=== PATIENT | female | born 1990 | race Caucasian/White ===

== ENCOUNTER 2021-06-24 14:31 | Inpatient (IN) | payer OTHER ==
[~2021-06-24] VITALS: Ht 162.6 cm; Wt 63.6 kg
[2021-06-24] MEDS ORDERED: FENTANYL PF 100 MCG/2ML ONE (15:45)
[2021-06-24 16:00] VITALS: BP 127/76
[2021-06-24] MEDS ORDERED: ONDANSETRON 2MG/ML, 2ML IVPush PRN (16:00)
[2021-06-24] MEDS ORDERED: D5%-LACTATED RINGERS 1,000 ML IV SCH (16:00)
[2021-06-24] MEDS ORDERED: FENTANYL PF 100 MCG/2ML IVPush PRN (16:00)
[2021-06-24] MEDS ORDERED: OXYTOCIN 30U/ 0.9% NaCL 500ML 500 ML IV ONE (16:00)
[2021-06-24] MEDS ORDERED: FENTANYL PF 100 MCG/2ML IV PRN (16:00)
[2021-06-24] MEDS ORDERED: TERBUTALINE 1 MG/ML, 1ML IVPush PRN (16:00)
[2021-06-24] MEDS ORDERED: CALCIUM CARBONATE 500 MG TAB.CHEW PO PRN ×2 (16:00→22:00)
[2021-06-24] MEDS ORDERED: TERBUTALINE 1 MG/ML, 1ML SQ PRN (16:00)
[2021-06-24] MEDS: LACTATED RINGERS 1,000 ML IV SCH ×3 (16:00→19:15)
[2021-06-24] MEDS ORDERED: NEWBORN KIT ONE (16:07)
[2021-06-24] MEDS ORDERED: OXYTOCIN 30U/ 0.9% NaCL 500ML 500 ML ONE (16:07)
[2021-06-24] MEDS ORDERED: MISOPROSTOL 200 MCG TABLET ONE (16:07)
[2021-06-24] MEDS ORDERED: PLEASE ENTER ALLERGIES MC SCH (16:30)
[2021-06-24] MEDS: PLEASE ENTER HEIGHT AND WEIGHT MC SCH (16:30)
[2021-06-24 16:33] LABS: BASOPHILS % (AUTO) 0 % (0-1); EOSINOPHILS % (AUTO) 0 % (1-7); LYMPHOCYTES % (AUTO) 11 % (22-44); MEAN CORPUSCULAR HEMOGLOBIN 31.2 pg (27.0-34.8); MEAN CORPUSCULAR HGB CONC 34.3 g/dL (32.4-35.8); MEAN PLATELET VOLUME 12.2 fL (7.4-10.4); MONOCYTES % (AUTO) 3 % (2-9); NEUTROPHILS % (AUTO) 87 % (42-75); PLATELET COUNT 160 x10^3/uL (130-400); RED BLOOD COUNT 4.43 x10^6/uL (3.82-5.3); RED CELL DISTRIBUTION WIDTH 12.9 % (9.6-15.2)
[2021-06-24] MEDS ORDERED: CITA20TA9 PO (16:48)
[2021-06-24] MEDS ORDERED: PREN1TAB10 PO (16:49)
[2021-06-24] MEDS ORDERED: BUPIVACAINE 0.25% ONE (17:18)
[2021-06-24] MEDS ORDERED: FENTANYL/BUPIV./NS/PF 250 ML EPIDCONT ONE (17:18)
[2021-06-24] MEDS ORDERED: NALOXONE 0.4 MG/ML, 1ML IVPush PRN (17:30)
[2021-06-24] MEDS ORDERED: FENTANYL/BUPIV./NS/PF 250 ML EPIDCONT SCH (17:30)
[2021-06-24] MEDS ORDERED: LACTATED RINGERS 1,000 ML IVBOLUS PRN (17:30)
[2021-06-24] MEDS ORDERED: EPHEDRINE 50 MG/ML, 1ML IVPush PRN (17:30)
[2021-06-24] MEDS ORDERED: LACTATED RINGERS 1,000 ML IV SCH (17:30)
[2021-06-24 18:31] LABS: AMPHETAMINE SCREEN, URINE Negative (Negative); BARBITURATE SCREEN, URINE Negative (Negative); BENZODIAZEPINE SCREEN, URINE Negative (Negative); CANNABINOID SCREEN, URINE Negative (Negative); COCAINE SCREEN, URINE Negative (Negative); METHADONE SCREEN, URINE Negative (Negative); OPIATE SCREEN, URINE Negative (Negative)
[2021-06-24] MEDS: OXYTOCIN 30U/ 0.9% NaCL 500ML 500 ML IV SCH ×3 (21:00→23:26)
[2021-06-24] MEDS ORDERED: MISOPROSTOL 200 MCG TABLET PR PRN (22:00)
[2021-06-24] MEDS ORDERED: ACETAMINOPHEN 325 MG TABLET PO PRN ×2 (22:00)
[2021-06-24] MEDS ORDERED: SIMETHICONE 80 MG CHEW TAB PO PRN (22:00)
[2021-06-24] MEDS ORDERED: BISACODYL 10 MG SUPP PR PRN (22:00)
[2021-06-24] MEDS ORDERED: HYDROcodone/APAP 5/325 TABLET PO PRN (22:00)
[2021-06-24] MEDS ORDERED: ONDANSETRON 2MG/ML, 2ML IV PRN (22:00)
[2021-06-24] MEDS: IBUPROFEN 600 MG TABLET PO PRN (22:55)
[2021-06-24 23:30] VITALS: BP 125/84
[2021-06-25] MEDS: PLEASE ENTER HEIGHT AND WEIGHT MC SCH ×3 (00:30→16:30)
[2021-06-25] MEDS: OXYTOCIN 30U/ 0.9% NaCL 500ML 500 ML IV SCH ×19 (00:52→23:48)
[2021-06-25 03:57] VITALS: BP 126/88
[2021-06-25] MEDS: IBUPROFEN 600 MG TABLET PO PRN ×3 (04:56→18:26)
[2021-06-25] MEDS: HYDROcodone/APAP 5/325 TABLET PO PRN ×2 (05:23→09:58)
[2021-06-25 05:38] LABS: BASOPHILS % (AUTO) 0 % (0-1); EOSINOPHILS % (AUTO) 0 % (1-7); LYMPHOCYTES % (AUTO) 18 % (22-44); MEAN CORPUSCULAR HEMOGLOBIN 31.1 pg (27.0-34.8); MEAN PLATELET VOLUME 11.3 fL (7.4-10.4); MONOCYTES % (AUTO) 7 % (2-9); NEUTROPHILS % (AUTO) 74 % (42-75); PLATELET COUNT 137 x10^3/uL (130-400); RED BLOOD COUNT 3.91 x10^6/uL (3.82-5.3); RED CELL DISTRIBUTION WIDTH 13.1 % (9.6-15.2)
[2021-06-25 07:20] VITALS: BP 105/70
[2021-06-25] MEDS: CITALOPRAM 20 MG TABLET PO SCH (08:00)
[2021-06-25] MEDS: DOCUSATE 100 MG CAPSULE PO PRN (08:20)
[2021-06-25] MEDS ORDERED: PRENATAL VIT/IRON/FA 1 EACH TABLET PO SCH (09:00)
[2021-06-25 12:00] VITALS: BP 108/76
[2021-06-25] MEDS ORDERED: MEASLES,MUMPS&RUBELLA VACC/PF 0.5 ML SQ-VACC ONE (16:00)
[2021-06-25 16:20] VITALS: BP 115/73
[2021-06-25 20:00] VITALS: BP 126/76
[2021-06-26] MEDS: DOCUSATE 100 MG CAPSULE PO PRN (00:18)
[2021-06-26] MEDS: IBUPROFEN 600 MG TABLET PO PRN ×3 (00:18→13:12)
[2021-06-26] MEDS: PLEASE ENTER HEIGHT AND WEIGHT MC SCH (00:30)
[2021-06-26] MEDS: OXYTOCIN 30U/ 0.9% NaCL 500ML 500 ML IV SCH ×5 (01:14→05:32)
[2021-06-26] MEDS: HYDROcodone/APAP 5/325 TABLET PO PRN (06:34)
[2021-06-26 07:30] VITALS: BP 114/73
[2021-06-26] MEDS: CITALOPRAM 20 MG TABLET PO SCH (09:00)
== END 2021-06-26 14:05 | disposition home or self-care (01) | DRG 807 ==
LOC: LDOP 14:31 → LDIP 16:18 → 2NW 23:25
PROVIDERS: ADMIT Obstetrics & Gynecology Maternal & Fetal Medicine; ATTEND Obstetrics & Gynecology Maternal & Fetal Medicine
PROC: 0KQM0ZZ Repair Perineum Muscle, Open Approach (ICD-10-PCS; principal; 2021-06-24)
PROC: 10E0XZZ Delivery of Products of Conception, External Approach (ICD-10-PCS; 2021-06-24)
PROC: 3E0R3BZ Introduction of Anesthetic Agent into Spinal Canal, Percutaneous Approach (ICD-10-PCS; 2021-06-24)
PROC: 00HU33Z Insertion of Infusion Device into Spinal Canal, Percutaneous Approach (ICD-10-PCS; 2021-06-24)
PROC: 10907ZC Drainage of Amniotic Fluid, Therapeutic from Products of Conception, Via Natural or Artificial Opening (ICD-10-PCS; 2021-06-24)
DX: O99.344 Other mental disorders complicating childbirth (principal); Z37.0 Single live birth; O70.1 Second degree perineal laceration during delivery; F32.9 Major depressive disorder, single episode, unspecified; Z20.822 Contact with and (suspected) exposure to COVID-19; Z3A.37 37 weeks gestation of pregnancy; Z87.81 Personal history of (healed) traumatic fracture; Z88.1 Allergy status to other antibiotic agents; Z98.890 Other specified postprocedural states; Z82.49 Family history of ischemic heart disease and other diseases of the circulatory system; Z80.3 Family history of malignant neoplasm of breast
CPT/HCPCS: 36415; 80307; 85025; 86592; 86850; 86900; 87635; 90707; G0378; J2405; J3010; J2590; J7120